=== PATIENT | male | born 1960 | race Caucasian/White ===

== ENCOUNTER 2020-06-04 10:16 | Outpatient (CLI) | payer BC, SELFPAY ==
--- NOTE | 2020-06-04 | DI.RAD_ITS ---
EXAM: XR FOOT LT COMPLETE CLINICAL HISTORY: ANKLE JOINT PAIN M25.572 TECHNIQUE: COMPARISON: CR,XR XR ANKLE LT COMPLETE from 06/04/2020 FINDINGS: Three views of the ankle and three views of the foot were obtained. There is slight varus talar tilt noted on the oblique view of the ankle, otherwise ankle mortise appears intact. There are minimal d egenerative changes at the tibiotalar joint. Otherwise alignment of the foot and ankle appear intact . No evidence of acute fracture or dislocation. IMPRESSION: RADIATION DOSE DELIVERED: Total DLP
--- NOTE | 2020-06-04 17:35 | DI.VRAD_ITS ---
PROCEDURE INFORMATION: Exam: XR Left Ankle Exam date and time: 06/04/2020 5:23 PM Age: 59 years old Clinical indication: Other: Ankle joint pain m25.572, pain x 1 mo, swelling, bruising, R/O sress fracture TECHNIQUE: Imaging protocol: XR Left ankle. Views: 3 or more views. COMPARISON: No relevant prior studies available. FINDINGS: Bones/joints: Subcentimeter relative bone lucency in the neck of the calcaneus probably represents an intraosseous lipoma. The bones are intact and there is no degenerative spurring or other deformity. No joint effusion. Soft tissues: Diffuse soft tissue swelling. IMPRESSION: Diffuse soft tissue swelling but no acute fracture or other concerning finding. Dictated and Authenticated by: Patrice Mendosa MD. Ordering:KENN Kelly MD
--- NOTE | 2020-06-04 17:39 | DI.VRAD_ITS ---
PROCEDURE INFORMATION: Exam: XR Left Foot Complete Exam date and time: 06/04/2020 4:51 PM Age: 59 years old Clinical indication: Other: Ankle joint pain m25.572 TECHNIQUE: Imaging protocol: XR Left foot. Views: 3 or more views. COMPARISON: No relevant prior studies available. FINDINGS: Bones/joints: Normal mineralization and alignment. No fracture, degenerative spur, osseous erosion or other deformity. Small medial hindfoot accessory ossicles. Soft tissues: Normal. IMPRESSION: No acute findings. Dictated and Authenticated by: Patrice Mendosa MD. Ordering:KENN Kelly MD
== END 2020-06-04 10:36 ==
PROVIDERS: PCP Physician Assistant; Visit Provider Nurse Practitioner Family
DX: M25.572 Pain in left ankle and joints of left foot (principal); M19.072 Primary osteoarthritis, left ankle and foot
CPT/HCPCS: 73610; 73630

== ENCOUNTER → 2020-06-14 10:42 | Outpatient (REF) | payer BC, SELFPAY ==
[2020-06-14 13:35] LABS: HCT 39.6 % (40.0-50.0); HGB 13.4 g/dL (13.5-17.5); MCH 30.9 pg (27.0-33.0); MCHC 33.8 % (32.0-36.0); MCV 91.5 fL (80-95); MPV 9.5 fL (8.0-11.0); Platelet Count 250 10^3/uL (130-400); RBC 4.33 10^6/uL (4.36-5.78); RDW-SD 40.2 fL; WBC 5.58 10^3/uL (4.4-10.8)
[2020-06-14 14:05] LABS: ALT 29 U/L (16-63); AST 21 U/L (15-37); Albumin 3.9 g/dL (3.4-5.0); Alkaline Phosphatase 59 U/L (46-116); Anion Gap 8.6 mmol/L (3-11); BUN 13 mg/dL (7-18); Bilirubin, Total 0.3 mg/dL (0.2-1.0); CO2 26.4 mmol/L (21.0-32.0); CREATININE 1.12 mg/dL (0.70-1.30); Calcium 8.7 mg/dL (8.5-10.1); Calculated LDL 76 mg/dL (<100); Chloride 105 mmol/L (98-107); Cholesterol 166 mg/dL (<200); Glucose 92 mg/dL (74-106); HDL Cholesterol 52 mg/dL (40-60); Potassium 4.3 mmol/L (3.5-5.1); Sodium 140 mmol/L (136-145); Total Protein 6.9 g/dL (6.4-8.2); Triglyceride 194 mg/dL (<150)
== END ==
LOC: NCHCN 10:42
PROVIDERS: PCP Physician Assistant; Visit Provider Physician Assistant
DX: I10 Essential (primary) hypertension (principal); E78.5 Hyperlipidemia, unspecified; I48.91 Unspecified atrial fibrillation; D68.59 Other primary thrombophilia
CPT/HCPCS: 80053; 80061; 85027

== ENCOUNTER 2020-09-24 02:08 | Outpatient (CLI) | payer BC, SELFPAY ==
[2020-09-24 11:26] LABS: Source Nasal/Nares
[2020-09-24 17:22] LABS: COVID-19 PCR Negative (Negative)
== END 2020-09-24 02:09 | disposition home or self-care (01) ==
LOC: LBO 02:09
PROVIDERS: Urology; PCP Physician Assistant; Visit Provider Nurse Practitioner Gerontology
DX: Z20.822 Contact with and (suspected) exposure to COVID-19 (principal)
CPT/HCPCS: 87635

== ENCOUNTER 2020-09-26 07:26 | Observation (INO) | payer BC, SELFPAY ==
[2020-09-26] VITALS (13 sets, daily range): BP systolic 95–128; BP diastolic 55–79; PULSE 44–71; RESP 11–20; TEMP 36.3–36.6; O2SAT 92–98
[2020-09-26 08:12] LABS: Abs Immature Grans 0.01 10^3/uL (0.0-0.06); Absolute Basophil Count 0.06 10^3/uL (0.0-0.2); Absolute Eosinophil Count 0.48 10^3/uL (0.0-0.7); Absolute Lymphocyte Count 1.36 10^3/uL (1.2-3.4); Absolute Monocyte Count 0.59 10^3/uL (0.1-0.8); Absolute Neutrophil Count 3.44 10^3/uL (1.2-6.7); Eosinophils % 8.1; HCT 37.9 % (40.0-50.0); HGB 13.1 g/dL (13.5-17.5); Immature Grans % 0.2; Lymphocytes % 22.9; MCH 31.2 pg (27.0-33.0); MCHC 34.6 % (32.0-36.0); MCV 90.2 fL (80-95); MPV 8.6 fL (8.0-11.0); Monocytes % 9.9; Neutrophils % 57.9; Nucleated RBC 0 %; Platelet Count 254 10^3/uL (130-400); RDW 12.3 % (11.8-14.1); RDW-SD 40.2 fL; WBC 5.94 10^3/uL (4.4-10.8)
[2020-09-26 08:19] LABS: CREATININE 1.3 mg/dL (0.70-1.30)
--- NOTE | 2020-09-26 08:19 | HPE_ITS ---
Date of service: 09/26/20 Time of Service: 08:19 Assessment and Plan Assessment and plan (1) Benign localized hyperplasia of prostate: Status: Acute Assessment and plan: For cystoscopy with TURP. We will plan to keep him in the hospital overnight for continuous bladder irrigation. We have a recommendation for 2 weeks of Lovenox in the perioperative period (made by his Clinical Project Leader). He and his partner express some concerns about potential side effects, so we will discuss again prior to his discharge. History of Present Illness Narrative: Homar is a 59-year-old male referred to urology by [facility] for BPH. Patient states that he has had this issue for several years and was initially treated with a provider in [place] before moving here. He states that his most notable symptoms are frequency, urgency straining to void and a slow stream. He does occasionally have urinary urge incontinence. He has had 2-3 bouts of urinary retention within the last year. Each of those urinary retention episodes were in relationship to stopping his tamsulosin. He notes that retention issues were addressed in [place] and [place]. He denies gross hematuria. He reports that he has had elevated PSAs in the past. There has been a history of prostate cancer with the males in his family. Another urology concerns he notes erectile dysfunction as side effects of the tamsulosin. He was unable to tolerate 0.8 mg of Tamsulosin. He reports that at 1 point he was found to have a low testosterone level and started on AndroGel. Once his PSA numbers started to rise and he had prostate issues, his provider stopped him off of the testosterone replacement. Patient notes that he is fatigued but has not had a decrease in his muscle mass. He is agreeable to TURP to allow him to get off all prostate medications. Review of Systems Narrative: No fevers or chills No vision change or dysphasia No diabetes or thyroid No shortness of breath, cough or hemoptysis No chest pain or palpitations. Hx Atrial Fibrillation s/p ablation 2019 No nausea, vomiting, hepatitis, ulcers, jaundice No seizures, strokes or peripheral neuropathy Hx hypercoagulable state. Has seen Hematology recently and cleared for surgical procedure Chronic back pain. No gout PFSH Medical History Afib Allergic asthma Anxiety disorder Arthralgia Benign localized hyperplasia of prostate Essential hypertension HLD (hyperlipidemia) Hypercoagulable state Pre-op exam Surgical History (Updated 09/26/20 @ 07:37 by Stephanie Turner RN) H/O cardiac radiofrequency ablation 2019 History of appendectomy Social History Smoking/Tobacco Use Status: Never Smoking risk assessment performed?: Yes Alcohol Intake: current Alcohol Intake frequency: 0-2 drinks per day Alcohol type: beer Drug use: Occasionally Substance use type: marijuana Do you feel safe at home: Yes Do you feel safe in your relationship?: Yes Meds Allergies and Home Medications Allergies Allergy/AdvReac Type Severity Reaction Status Date / Time No Known Allergies Allergy Unverified 09/26/20 07:38 Home Medications Medication Instructions Recorded Confirmed Type albuterol sulfate 90 mcg/actuation 2 puff INHALATION Q6H PRN 06/11/20 09/26/20 History aerosol inhaler celecoxib 100 mg capsule 100 mg PO DAILY PRN 06/11/20 09/26/20 History cetirizine 10 mg capsule 10 mg PO DAILY 06/11/20 09/26/20 History dicyclomine 20 mg tablet 20 mg PO QID PRN 06/11/20 09/26/20 History dofetilide 125 mcg capsule 125 mcg PO BID cap 06/11/20 09/26/20 History fluticasone propionate 110 1 puff INHALATION BID 06/11/20 09/26/20 History mcg/actuation HFA aerosol inhaler losartan 25 mg tablet 25 mg PO DAILY 06/11/20 09/26/20 History rosuvastatin 10 mg tablet 10 mg PO DAILY 06/11/20 09/26/20 History tamsulosin 0.4 mg capsule 0.4 mg PO QHS 06/11/20 09/26/20 History tadalafil 5 mg tablet 5 mg PO DAILY 08/07/20 09/26/20 History Exam Const General: cooperative, comfortable and no acute distress Neck Neck: supple Resp Effort & Inspection: normal respiratory effort Auscultation: clear to auscultation bilaterally Cardio Rate: regular rate Rhythm: regular rhythm GI Palpation: soft, no masses and nontender Neuro General: patient alert, patient awake and patient oriented x3 Results Labs Result diagrams: 09/26/20 08:03 09/26/20 08:03 Labs: Laboratory Results - last 24 hr 09/26/20 08:03 WBC 5.94 RBC 4.20 L Hgb 13.1 L Hct 37.9 L MCV 90.2 MCH 31.2 MCHC 34.6 RDW 12.3 Plt Count 254 MPV 8.6 Immature Gran % 0.2 Neutrophils % 57.9 Lymphocytes % 22.9 Monocytes % 9.9 Eosinophils % 8.1 Basophils % 1.0 Nucleated RBC % 0 Absolute Neutrophils 3.44 Absolute Lymphocytes 1.36 Absolute Monocytes 0.59 Absolute Eosinophils 0.48 Absolute Basophils 0.06 Last Vital Signs Temp 36.6 C 09/26/20 07:28 Pulse 60 09/26/20 07:28 Resp 20 09/26/20 07:28 BP 128/79 09/26/20 07:28 Pulse Ox 96 09/26/20 07:28 COVID-19 Screening Have you, or household traveled for leisure in last 14 days?: No Had IN PERSON contact w/suspected or confirmed C-19 person: No
[2020-09-26] MEDS: Lactated Ringers 1,000 ML 80 ML IV (08:28)
[2020-09-26] MEDS: ceFAZolin 2 GM/50 ML BAG IVPB (09:01)
[2020-09-26] MEDS: Lidocaine 2% Jelly 6 ML SYR (09:21)
--- NOTE | 2020-09-26 10:45 | PROST_PTH ---
PATIENT: Homar Kirby LOC: U#:[id number] AGE/SX: 59/M ROOM: 229 RE09/26/[address]: Silviano Echevarria MD : [id number] BED: A DIS: 09/27/2020 SPEC #: [id number] RECD: 09/26/20 12:55 STATUS: KERWIN REQ #: [id number] ABDIEL: 09/26/20 10:[address]: Silviano Echevarria DEPT: Surgical Specimen RECD BY: Yasmin Holbrook ENTERED: 09/26/20 12:56 SP TYPE: PROST OTHR DR: Nikolay Campa Tissues: 1 - PROSTATE CURRETTINGS Procedures: GROSS AND MICRO LEVEL 4 Comments: [id number]
--- NOTE | 2020-09-26 10:55 | W.PM.OP ---
Date of service: 09/26/20 Time of Service: 10:55 Operative Note Operative Note DATE OF PROCEDURE: 09/26/20 PRE-OP DIAGNOSIS: BPH with lower urinary tract symptoms POST-OP DIAGNOSIS: same PROCEDURE: cystoscopy, TURP with bipolar cautery ANESTHESIA TYPE: General LMA/ETT Refer to Anesthesia Record ESTIMATED BLOOD LOSS: 250 PATHOLOGY: other (prostate chips) COMPLICATIONS: None Patient was transported to: PACU Patient's condition: stable Implants: 22 [place] hematuria park catheter with 30 cc in balloon Indications: Is a 59-year-old gentleman with a history of lower urinary tract symptoms. He has tried and failed medical management with alpha blockers. He has had several episodes of urinary retention. He presents for transurethral resection of his prostate. Findings: Diffusely enlarged prostate with no significant median lobe Procedure Description: The patient was brought to the operating room on 09/26/2020. He was given preoperative IV antibiotics. After successful induction of general anesthesia, he was placed in the dorsal lithotomy position. His genitalia was prepped and draped. 2% Xylocaine jelly was instilled into the urethra. A 24 [place] resectoscope sheath was passed through the urethra into the bladder. We used a visual obturator and a 30 degree lens to inspect the urethral mucosa. No papillary lesions were seen along the length of the urethra. No strictures were found in the pendulous, bulbous or membranous urethra's. The prostatic urethra showed lateral lobe enlargement but no significant median lobe was identified. The bladder neck was entered and the bladder mucosa was inspected. Both ureteral orifice ease appeared normal. No blood was seen coming from either side. The remainder the bladder was slightly trabeculated with no papillary or nodular lesions identified. We then removed the visual obturator and utilized an [employer] resectoscope working element to perform transurethral resection of the prostate. We resected from the bladder neck out to the verumontanum. The depth of the resection was down to the prostatic capsule. All resected tissue was evacuated and sent to pathology for permanent section. We then switched to the plasma button and vaporized the remainder of the prostatic tissue down to the capsule. Any arterial bleeding points are identified were cauterized. At the completion of the procedure no arterial bleeding was seen. The bladder was filled with irrigant. The resectoscope was removed. A 22 [place] hematuria catheter was then passed through the urethra into the bladder. The catheter balloon was inflated with 30 cc of sterile water. Continuous bladder irrigation was then begun. Traction was placed on the catheter until the irrigant became clear. Belladonna and opium suppository was then inserted into the patient's rectum to help control bladder spasms. The patient tolerated this procedure well with no complications. He was taken to the recovery room in stable condition.
[2020-09-26] MEDS: ceFAZolin 1 GM/50 ML BAG IVPB ×2 (16:53→21:47)
[2020-09-26] MEDS: Lactated Ringers 1,000 ML 125 ML IV (16:53)
[2020-09-26] MEDS: Docusate Sodium 100 MG CAP PO (19:55)
[2020-09-26] MEDS: Zolpidem 5 MG TAB PO (22:44)
[2020-09-27] MEDS: Lactated Ringers 1,000 ML 125 ML IV (01:34)
[2020-09-27 01:37] VITALS: BP 125/57; PULSE 73; RESP 18; TEMP 36.9; O2SAT 95
[2020-09-27] MEDS: ceFAZolin 1 GM/50 ML BAG IVPB (05:33)
[2020-09-27 07:23] VITALS: BP 107/57; PULSE 66; RESP 18; TEMP 36; O2SAT 95
--- NOTE | 2020-09-27 07:25 | DSE_ITS ---
Date of service: 09/27/20 Time of Service: 07:25 DS: Diagnosis Discharge Diagnosis (1) Benign localized hyperplasia of prostate: Status: Acute Discharge Plan Disposition Patient Disposition: HOME Condition: Stable Discharge Details Reason For Visit: BPH WITH LOWER URINARY TRACT SYMPTOMS Admit Date/Time: 09/26/20 07:26 Admit Provider: Silviano Echevarria Attending Provider: Silviano Echevarria Primary Care Provider: Nikolay Campa Hospital Course Hospital Course: The patient was a admitted and taken to the operating room on 09/26/2020. He un derwent cystoscopy, transurethral resection of the prostate and vaporization of the prostate using bipolar cautery. Lower extremity sequential compression devices were applied preoperatively and were maintained perioperatively. His surgery was uneventful. In the postoperative time, he was maintained with continuous bladder irrigation. By postoperative day #1, his irrigant remained clear. His vital signs were stable. The irrigant was discontinued and he is being discharged to home with a catheter in place. The patient does have a history of a hypercoagulable state. Based on the recommendations of his maxillofacial pathology, we checked a CBC and creatinine preoperatively. Both results were stable for the patient. Prior to discharge, we reviewed the recommendations made by the patient's hemat ology provider. The patient had preop blood work, but his lupus anticoagulant level will not be available for 2 weeks. To be on the safe side, hematology is recommending that the patient use Lovenox 40 mg/day for 2 weeks. 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 He is not sure that he will actually follow through with the Lovenox injections. He understands the rationale for the use of the Lovenox, but he may use a daily aspirin instead. We reviewed the signs and symptoms of both DVTs and PE. We stressed the importance of ambulation to help prevent DVTs. Home Meds and New Rx's Prescriptions: New enoxaparin [Lovenox] 40 mg/0.4 mL syringe 40 mg subcut DAILY 14 Days Qty: 5.6 RF: 0 Continued tadalafil 5 mg tablet 5 mg PO DAILY RF: 0 dicyclomine 20 mg tablet 20 mg PO QID PRNRF: 0 albuterol sulfate [ProAir HFA] 90 mcg/actuation HFA aerosol inhaler 2 puff inhalation Q6H PRNRF: 0 celecoxib [Celebrex] 100 mg capsule 100 mg PO DAILY PRNRF: 0 Flovent HFA 110 mcg/actuation HFA aerosol inhaler 1 puff inhalation BID RF: 0 losartan 25 mg tablet 25 mg PO DAILY RF: 0 dofetilide [Tikosyn] 125 mcg capsule 125 mcg PO BID RF: 0 Zyrtec 10 mg capsule 10 mg PO DAILY RF: 0 tamsulosin 0.4 mg capsule 0.4 mg PO QHS RF: 0 rosuvastatin 10 mg tablet 10 mg PO DAILY RF: 0 Discharge Instructions Additional Instructions: Follow-up early next week for catheter removal No straining or lifting over 20 pounds Okay to shower Activity:: No lifting over 20 pounds Equipment/Supplies:: Knox to leg bag Diet:: As Tolerated Discharge Orders Discharge Orders: Discharge Order (Routine); Ordered 09/27/20 Ordered By: Silviano Echevarria DS: Summary Time Spent with Patient providing and/or coordinating discharge services: Less than 30 minutes Status at Discharge Functional status at discharge: independent ambulation Overall status at discharge: patient is back to baseline Mental Status: mental status grossly normal Speech and Movement: speech and movement normal Mood: congruent mood Affect: normal affect Exam Narrative Exam Narrative: At the time of discharge, he looks well. His vital signs are documented elsewhere in this chart He does not appear septic or toxic Lungs are clear Cardiac exam shows a regular rate and rhythm His abdomen is soft with no mass His Knox catheter is draining clear urine His calves are nontender He is awake and alert Psych Mental Status: mental status grossly normal Speech and Movement: speech and movement normal Mood: congruent mood Affect: normal affect DS: Data Vitals/I&O Vitals and I&O: Vital Signs Temperature 36.0 C L 09/27/20 07:23 Temperature Source Tympanic 09/27/20 07:23 Pulse 66 09/27/20 07:23 Pulse Rhythm Regular 09/27/20 04:54 Respiratory Rate 18 09/27/20 07:23 Respiratory Effort Non-Labored 09/27/20 04:54 Respiratory Depth Normal 09/27/20 04:54 Respiratory Pattern Normal 09/27/20 04:54 Blood Pressure 107/57 L 09/27/20 07:23 Pulse Oximetry 95 09/27/20 07:23 Respiratory End-tidal CO2 41 09/26/20 11:51 Oxygen Delivery Method Room Air 09/27/20 07:23 Oxygen Flow Rate 0 09/27/20 07:23 Pain Level 0 09/27/20 07:23 Comment 09/26/20 12:45 Intake & Output 09/26/20 09/26/20 09/27/20 11:59 23:59 11:59 Intake Total 550 / 1140.667 590.667 / 1072.613 3486 / 2000 Balance 550 / 1140.667 590.667 / 3661.881 3521 / 2000 Weight 98.1 kg Intake: IV 550 / 1140.667 590.667 / 4671.435 2849 / 2000 Other: Urine Color [place] Yellow Urine Appearance Clear Comment Secured to leg with safety strap had belladonna suppository in PACU- slow flow 3 way- Emesis Description None None Data Completed and Pending Labs on day of discharge: Labs from last 24 hours 09/27/20 09/27/20 09/26/20 05:35 05:35 08:03 WBC Pending 5.94 RBC Pending 4.20 L Hgb Pending 13.1 L Hct Pending 37.9 L MCV Pending 90.2 MCH Pending 31.2 MCHC Pending 34.6 RDW Pending 12.3 Plt Count Pending 254 MPV Pending 8.6 Immature Gran % Pending 0.2 Neutrophils % Pending 57.9 Lymphocytes % Pending 22.9 Monocytes % Pending 9.9 Eosinophils % Pending 8.1 Basophils % Pending 1.0 Nucleated RBC % 0 Absolute Neutrophils Pending 3.44 Absolute Lymphocytes Pending 1.36 Absolute Monocytes Pending 0.59 Absolute Eosinophils Pending 0.48 Absolute Basophils Pending 0.06 Sodium Pending Potassium Pending Chloride Pending Carbon Dioxide Pending Anion Gap Pending BUN Pending Creatinine Pending Estimated GFR/1.73 m2 Pending Glucose Pending Calcium Pending 09/26/20 08:03 WBC RBC Hgb Hct MCV MCH MCHC RDW Plt Count MPV Immature Gran % Neutrophils % Lymphocytes % Monocytes % Eosinophils % Basophils % Nucleated RBC % Absolute Neutrophils Absolute Lymphocytes Absolute Monocytes Absolute Eosinophils Absolute Basophils Sodium Potassium Chloride Carbon Dioxide Anion Gap BUN Creatinine 1.3 Estimated GFR/1.73 m2 56.90 Glucose Calcium [facility] Medical History Afib Allergic asthma Anxiety disorder Arthralgia Benign localized hyperplasia of prostate Essential hypertension HLD (hyperlipidemia) Hypercoagulable state Pre-op exam Surgical History H/O cardiac radiofrequency ablation 2020 History of appendectomy Social History Smoking/Tobacco Use Status: Never Smoking risk assessment performed?: Yes Alcohol Intake: current Alcohol Intake frequency: 0-2 drinks per day Alcohol type: beer Drug use: Occasionally Substance use type: marijuana Do you feel safe at home: Yes Do you feel safe in your relationship?: Yes
[2020-09-27 07:29] LABS: Abs Immature Grans 0.04 10^3/uL (0.0-0.06); Absolute Basophil Count 0.02 10^3/uL (0.0-0.2); Absolute Eosinophil Count 0.01 10^3/uL (0.0-0.7); Absolute Lymphocyte Count 1.44 10^3/uL (1.2-3.4); Absolute Monocyte Count 1.06 10^3/uL (0.1-0.8); Absolute Neutrophil Count 8.86 10^3/uL (1.2-6.7); Basophils % 0.2; Eosinophils % 0.1; HCT 29.1 % (40.0-50.0); HGB 9.9 g/dL (13.5-17.5); Immature Grans % 0.3; Lymphocytes % 12.6; MCH 30.8 pg (27.0-33.0); MCV 90.7 fL (80-95); MPV 9.3 fL (8.0-11.0); Monocytes % 9.3; Neutrophils % 77.5; Nucleated RBC 0 %; Platelet Count 259 10^3/uL (130-400); RBC 3.21 10^6/uL (4.36-5.78); RDW 12.3 % (11.8-14.1); RDW-SD 40.6 fL; WBC 11.43 10^3/uL (4.4-10.8)
--- NOTE | 2020-09-27 07:40 | PGE_ITS ---
Date of Service Date of service: 09/27/20 Time of Service: 07:40 Assessment and Plan Assessment and plan (1) Benign localized hyperplasia of prostate: Status: Acute Assessment and plan: He is recovering nicely from his procedure. We will discontinue his IV fluids and continuous bladder irrigation. We will make sure he ambulates to ensure there is no orthostatic hypotension He should be able to go home later today with his catheter to a leg bag. We will plan on removing his catheter early next week. We will then have a follow- up appointment in about 2 weeks for a pathology discussion. Subjective Subjective Interval history since last seen: He feels, to bowl with no significant catheter discomfort or pain. He is tolerating p.o. intake. He has no lightheadedness or dizziness. He has no calf pain or shortness of breath. Exam Narrative Exam Narrative: He does not appear septic or toxic His vital signs are documented elsewhere The urine in his catheter is clear He is awake and alert His is around 10. His serum creatinine is stable at 1.2 Objective Last Vital Signs Temp 36.0 C L 09/27/20 07:23 Pulse 66 09/27/20 07:23 Resp 18 09/27/20 07:23 BP 107/57 L 09/27/20 07:23 Pulse Ox 95 09/27/20 07:23 Laboratory Results - last 24 hr 09/26/20 09/26/20 09/27/20 08:03 08:03 06:17 WBC 5.94 11.43 H D RBC 4.20 L 3.21 L Hgb 13.1 L 9.9 L D Hct 37.9 L 29.1 L D MCV 90.2 90.7 MCH 31.2 30.8 MCHC 34.6 34.0 RDW 12.3 12.3 Plt Count 254 259 MPV 8.6 9.3 Immature Gran % 0.2 0.3 Neutrophils % 57.9 77.5 Lymphocytes % 22.9 12.6 Monocytes % 9.9 9.3 Eosinophils % 8.1 0.1 Basophils % 1.0 0.2 Nucleated RBC % 0 0 Absolute Neutrophils 3.44 8.86 H Absolute Lymphocytes 1.36 1.44 Absolute Monocytes 0.59 1.06 H Absolute Eosinophils 0.48 0.01 Absolute Basophils 0.06 0.02 Creatinine 1.3 Estimated GFR/1.73 m2 56.90
[2020-09-27 07:56] LABS: Anion Gap 3.7 mmol/L (3-11); BUN 23 mg/dL (7-18); CO2 26.3 mmol/L (21.0-32.0); CREATININE 1.2 mg/dL (0.70-1.30); Calcium 8.2 mg/dL (8.5-10.1); Chloride 107 mmol/L (98-107); Glucose 111 mg/dL (74-106); Sodium 137 mmol/L (136-145)
[2020-09-27] MEDS: Docusate Sodium 100 MG CAP PO (08:21)
[2020-09-27] MEDS: Rosuvastatin 10 MG TAB PO (08:22)
[2020-09-27] MEDS: Losartan 25 MG TAB PO (08:22)
[2020-09-27] MEDS: Cetirizine 10 MG TAB PO (08:22)
[2020-09-27] MEDS: Normal Saline Flush 10 ML SYR IV (08:22)
--- NOTE | 2020-09-27 13:37 | CHAPLAIN ---
Homar was up in his chair, working on an iPad, and said he's being discharged later today. He's waiting for his fiance to pick him up. He lives in [place], [place].
[2020-09-27] MEDS: Acetaminophen 325 MG TAB 650 MG PO (14:06)
--- NOTE | 2020-09-27 16:56 | CMPROGNOTE_ITS ---
- If Service Date Differs Date of service: 09/27/20 Time of Service: 16:56 Care Management Progress Note S/O: Homar was sitting up in his chair when CM met with him. He has already been discharged, but is waiting for his fiance to drive him home this afternoon. CM was given forms for him to return to work, which CM brought to Dr. Echevarria, and will be faxed from his office. Urology will mail him the originals once they have been faxed to his employer. 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 He is independent at baseline, and will not require any services or equipment upon discharge. He will follow up with Urology and his discharge plan of care. CM will continue to follow. A: Homar is a 59 year old male admitted to [facility] on 09/26/20 with BPH with lower urinary tract symptoms. P: Homar will return home today with no services. He will be driven home via private vehicle by his fiance. He will follow up with Urology, his PCP and his discharge plan of care. He had no questions or concerns regarding his discharge.
== END 2020-09-27 18:01 | disposition home or self-care (01) | DRG 714 ==
LOC: MS 09-27 13:50 → PDS 12-19 15:44 → MS 12-19 15:44
PROVIDERS: Admitting Provider Urology; PCP Physician Assistant; Visit Provider Urology
PROC: 0VT08ZZ Resection of Prostate, Via Natural or Artificial Opening Endoscopic (ICD-10-PCS; CPT 52601; principal; 2020-09-26 08:45)
DX: N40.1 Benign prostatic hyperplasia with lower urinary tract symptoms (principal); R35.0 Frequency of micturition; R39.15 Urgency of urination; I48.91 Unspecified atrial fibrillation; F41.9 Anxiety disorder, unspecified; I10 Essential (primary) hypertension; E78.5 Hyperlipidemia, unspecified; J45.909 Unspecified asthma, uncomplicated
CPT/HCPCS: 52601; 36415; 80048; 88305; NC; 82565; 85025; J0690

== ENCOUNTER 2020-09-27 21:50 | Emergency (ER) | payer BC, SELFPAY ==
[2020-09-27 21:53] VITALS: BP 134/76; PULSE 75; RESP 18; TEMP 36.8; O2SAT 98
--- NOTE | 2020-09-27 22:27 | ED.GENADUL_ITS ---
Discharge Plan Disposition Patient Disposition: HOME Condition: Stable Discharge Details Clinical Impression: Bladder spasm, Post-op pain Primary Care Provider: Nikolay Campa ED Provider: Sunny Blackmon Home Meds and New Rx's Prescriptions: New oxybutynin chloride 10 mg tablet extended release 24hr 10 mg PO DAILY Qty: 10 RF: 0 Continued dicyclomine 20 mg tablet 20 mg PO QID PRNRF: 0 albuterol sulfate [ProAir HFA] 90 mcg/actuation HFA aerosol inhaler 2 puff inhalation Q6H PRNRF: 0 celecoxib [Celebrex] 100 mg capsule 100 mg PO DAILY PRNRF: 0 Flovent HFA 110 mcg/actuation HFA aerosol inhaler 1 puff inhalation BID RF: 0 losartan 25 mg tablet 25 mg PO DAILY RF: 0 dofetilide [Tikosyn] 125 mcg capsule 125 mcg PO BID RF: 0 Zyrtec 10 mg capsule 10 mg PO DAILY RF: 0 rosuvastatin 10 mg tablet 10 mg PO DAILY RF: 0 Discontinued tadalafil 5 mg tablet 5 mg PO DAILY RF: 0 enoxaparin [Lovenox] 40 mg/0.4 mL syringe 40 mg subcut DAILY 14 Days Qty: 5.6 RF: 0 Discharge Instructions Additional Instructions: Please follow-up with urology next week as scheduled. Please take ibuprofen over the counter. Take 600mg by mouth every 6 hours as needed for pain. Take antispasmodic agent as prescribed. Your next dose is tomorrow evening. Return to the emergency department immediately for any worsening or new concerns including inability to urinate or increasing pain or fever. Referrals: Silviano Echevarria MD [ [facility] STAFF PHYSICIAN] - Medical Decision Making 2229??59-year-old male presents 1 day status post TURP with significant pain suprapubic and and penis with urine leaking around catheter after attempted bowel movement. Bladder scan performed and patient had 130 mL of urine in bladder. I called and spoke with patient's urologist, Dr. Echevarria, discussed ED presentation and course, he recommends flushing catheter to hopefully remove clot. He also recommends treating with antispasmodic oxybutynin. Nursing to flush catheter. --Urine now draining. Will continue antispasmotic and have patient followup with Dr. Echevarria. Disposition decision was made weighing the risks and benefits of hospitalization versus outpatient treatment, the risk for further decompensation, and the patient's wishes. The patient was stable and requested discharge. Prior to discharge, my usual and customary return precautions were reviewed with the patient - this included follow-up instructions and reason to return to the emergency department if condition worsens, does not improve as expected, or other new concerns arise. Medical Records Medical records reviewed: Yes I reviewed the patient's medical records. HPI General Mode of arrival: ambulatory . Date/Time Provider Initiated Documentation: 09/27/20 21:51 . Limitations to Documentation: no limitations . Information obtained by: patient . HPI Narrative: 59-year-old male presents 1 day status post TURP for BPH, discharged today and went home and attempted to have a bowel movement and had sudden onset of severe pain in suprapubic area. This occurred about an hour prior to arrival. He subsequently notes that he had some urine leaking out around the Knox catheter and decreased drainage in his catheter. He continues to have some suprapubic discomfort that is moderate rated 5/10. He did not have a bowel movement Denies associated fever. Related Data Home Medications Medication Instructions Recorded Confirmed albuterol sulfate 90 mcg/actuation 2 puff INHALATION Q6H PRN 06/11/20 09/27/20 aerosol inhaler celecoxib 100 mg capsule 100 mg PO DAILY PRN 06/11/20 09/27/20 cetirizine 10 mg capsule 10 mg PO DAILY 06/11/20 09/27/20 dicyclomine 20 mg tablet 20 mg PO QID PRN 06/11/20 09/27/20 dofetilide 125 mcg capsule 125 mcg PO BID cap 06/11/20 09/27/20 fluticasone propionate 110 1 puff INHALATION BID 06/11/20 09/27/20 mcg/actuation HFA aerosol inhaler losartan 25 mg tablet 25 mg PO DAILY 06/11/20 09/27/20 rosuvastatin 10 mg tablet 10 mg PO DAILY 06/11/20 09/27/20 oxybutynin chloride 10 mg PO DAILY #10 tab 09/27/20 Previous Rx's Medication Instructions Recorded oxybutynin chloride 10 mg PO DAILY #10 tab 09/27/20 Allergies Allergy/AdvReac Type Severity Reaction Status Date / Time No Known Allergies Allergy Unverified 09/27/20 21:55 General Stated Complaint: Urinary TERA: 3 Review of Systems Constitutional Constitutional: Denies fever(s) Gastrointestinal Gastrointestinal: Reports as per HPI Genitourinary Genitourinary: Reports as per HPI and Reports hematuria PFSH Medical History Afib Allergic asthma Anxiety disorder Arthralgia Benign localized hyperplasia of prostate Essential hypertension HLD (hyperlipidemia) Hypercoagulable state Pre-op exam Surgical History H/O cardiac radiofrequency ablation 2020 History of appendectomy Social History Smoking/Tobacco Use Status: Never Smoking risk assessment performed?: Yes Alcohol Intake: current Alcohol Intake frequency: 0-2 drinks per day Alcohol type: beer Drug use: Occasionally Substance use type: marijuana Do you feel safe at home: Yes Do you feel safe in your relationship?: Yes Exam Const General: cooperative and no acute distress Eyes Conjunctivae: normal conjunctivae Sclera: normal sclerae Cardio Rate: regular rate GI Palpation: soft, not firm, no guarding, no masses, not rigid and tender s uprapubicly Penis: normal penis Other: Knox catheter intact Skin General skin exam: no rashes or lesions noted Neuro General: patient alert, patient awake, patient oriented x3 and tone normal Course Vital Signs Vital signs: Vital Signs Temperature 36.8 C 09/27/20 21:53 Pulse 75 09/27/20 21:53 Respiratory Rate 18 09/27/20 21:53 Blood Pressure 134/76 09/27/20 21:53 Pulse Oximetry 98 09/27/20 21:53 Temperature 36.8 C 09/27/20 21:53 Pulse 75 09/27/20 21:53 Respiratory Rate 18 09/27/20 21:53 Respiratory Effort Non-Labored 09/27/20 21:58 Blood Pressure 134/76 09/27/20 21:53 Pulse Oximetry 98 09/27/20 21:53 Pain Level 5 09/27/20 21:53
[2020-09-27] MEDS: Oxybutynin-CR 5 MG TABCR 10 MG PO (22:58)
== END 2020-09-27 23:20 | disposition home or self-care (01) ==
PROVIDERS: Emergency Provider Student in an Organized Health Care Education/Training Program; PCP Physician Assistant
DX: N32.89 Other specified disorders of bladder (principal); R10.30 Lower abdominal pain, unspecified; G89.18 Other acute postprocedural pain; T83.091A Other mechanical complication of indwelling urethral catheter, initial encounter
CPT/HCPCS: 99284

== ENCOUNTER 2020-10-10 16:24 | Outpatient (REF) | payer BC, SELFPAY | END 2020-10-10 16:25 | disposition home or self-care (01) | LOC: LBN 16:24 | PROVIDERS: PCP Physician Assistant; Visit Provider Urology | DX: R31.9 Hematuria, unspecified (principal); N40.1 Benign prostatic hyperplasia with lower urinary tract symptoms | CPT/HCPCS: 87086 ==

== ENCOUNTER 2020-11-05 14:36 | Outpatient (REF) | payer BC, SELFPAY | END 2020-11-05 14:37 | disposition home or self-care (01) | LOC: LBN 14:36 | PROVIDERS: PCP Physician Assistant; Visit Provider Urology | DX: R30.0 Dysuria (principal); N32.89 Other specified disorders of bladder | CPT/HCPCS: 87086 ==

== ENCOUNTER 2021-01-07 02:10 | Outpatient (CLI) | payer BC, SELFPAY ==
--- NOTE | 2021-01-07 | DI.RAD_ITS ---
Exam(s) XR LUMBAR SPINE COMPLETE EXAM: XR LUMBAR SPINE COMPLETE CLINICAL HISTORY: LOW BACK PAIN, M54.5,PROGRESSIVE,RT SIDED RADICULOPATHY TECHNIQUE: COMPARISON: No exams were available for comparison FINDINGS: Five views were obtained. There is narrowing of the intervertebral disc spaces at L4-5 and L5-S1. T here are mild hypertrophic endplate degenerative changes throughout the lumbar region. Mild facet hy pertrophic changes also noted throughout the lumbar region. No evidence of spondylolysis or spondylo listhesis. SI joints appear well maintained. No compression fracture seen. IMPRESSION: Degenerative changes of the lumbar spine with loss of disc height at L4-5 and L5-S1. RADIATION DOSE DELIVERED: Total DLP
== END 2021-01-07 02:30 ==
PROVIDERS: PCP Physician Assistant; Visit Provider Physician Assistant
DX: M47.26 Other spondylosis with radiculopathy, lumbar region (principal)
CPT/HCPCS: 72110

== ENCOUNTER 2021-02-12 02:05 | Outpatient (CLI) | payer BC, SELFPAY ==
--- NOTE | 2021-02-12 11:20 | DI.MRI_ITS ---
Exam(s) MR LUMBAR SPINE WO EXAM: MR LUMBAR SPINE WO CLINICAL HISTORY: PROGRESSIVE LOW BACK PAIN,M54.5,RT SIDED RADICULOPATHY. TECHNIQUE: Multiplanar multisequence MRI of the Lumbar spine was performed. COMPARISON: CR XR LUMBAR SPINE COMPLETE from 01/07/2021 FINDINGS: Plain films performed 01/07/2021 were reviewed. Conus medullaris is at normal level. There is no evidence of conus mass nor subjacent clumping of in trathecal nerve roots to suggest arachnoiditis. The distal thecal sac appears unremarkable.There is no evidence of Tarlov intrasacral cysts nor other significant findings within the sacral canal Bones:There are no fractures nor ominous osseous lesions in the lumbar vertebral bodies and visualize d sacrum. With respect to the individual levels... T12-L1: Unremarkable L1-2: Normal disc height and signal. No disc herniation nor central canal stenosis.No foraminal steno sis L2-3: There is mild-moderate disc space narrowing at this level. There is mild symmetrical annular b ulging without a dominant disc herniation at this level.No significant central canal stenosis.. No f oraminal stenosis.No facet arthropathy. L3-4: Preserved disc height and signal. Mild symmetrical annular bulging but without a significant d isc herniation.Central canal dimensions are lower normal.There is no significant foraminal stenosis.. Mild degenerative changes in the right facet joint noted. Left facet joint unremarkable. L4-5: This level exhibits moderate disc space narrowing, more so on the right side. There is a centr al-posterolateral right disc herniation at this level superimposed upon annular bulging. This disc p rotrusion extends posteriorly 5 millimeters and is approximately 1.7 cm wide. This indents the anter ior and right thecal sac at this level. The disc herniation does not extend into the exiting right n eural foramen and there is no prominent foraminal stenosis on either side at this level. Incidentall y noted is a small focus of bright signal in the left side of the annulus at this level at the level of the exiting left neural foramen. However, there does not appear to be a prominent disc herniation at this location at this time. Mild-moderate degenerative changes are noted in the left facet joint at this level. Mild degenerative changes in the right facet joint. L5-S1: This level exhibits more advanced chronic-type disc space narrowing. There is annular bulging with a superimposed central subligamentous disc protrusion at this level. This disc protrusion exte nds posteriorly 2 millimeters and is approximately 1.2 cm wide. This slightly indents the anterior a spect of thecal sac but does not extend into the exiting neural foramina. Central canal dimensions a re lower normal at this level. There is no significant foraminal stenosis despite the disc height lo ss. This is related to the fact that there are only minimal degenerative facet joint changes. Soft tissues: paraspinal soft tissues appear unremarkable. IMPRESSION: 1. Most significant findings at L4-5 level where there is a central-right paracentral disc herniation as described above which indents the thecal sac, extending posteriorly up to 5 millimeters. However , this does not extend into the exiting right neural foramen. 2. Smaller central subligamentous disc protrusion is evident at L5-S1 level. No prominent central ca nal stenosis at this level and no foraminal stenosis. 3. There is only minimal facet arthropathy in the lumbar spine. No listhesis. DATA REPOSITORY:
== END 2021-02-12 02:25 ==
PROVIDERS: PCP Physician Assistant; Visit Provider Physician Assistant
DX: M54.5 Low back pain (principal); M51.26 Other intervertebral disc displacement, lumbar region; M51.27 Other intervertebral disc displacement, lumbosacral region; M12.88 Other specific arthropathies, not elsewhere classified, other specified site
CPT/HCPCS: 72148

== ENCOUNTER 2021-04-09 21:12 | Outpatient (REF) | payer BC, SELFPAY ==
[2021-04-09 20:12] LABS: HCT 40.6 % (40.0-50.0); HGB 13.6 g/dL (13.5-17.5); MCH 30.1 pg (27.0-33.0); MCHC 33.5 % (32.0-36.0); MCV 89.8 fL (80-95); MPV 9.3 fL (8.0-11.0); Platelet Count 302 10^3/uL (130-400); RBC 4.52 10^6/uL (4.36-5.78); RDW 12.7 % (11.8-14.1); RDW-SD 41.6 fL; WBC 6.74 10^3/uL (4.4-10.8)
[2021-04-09 20:15] LABS: Anion Gap 8.7 mmol/L (3-11); BUN 24 mg/dL (7-18); CO2 28.3 mmol/L (21.0-32.0); Calcium 9.1 mg/dL (8.5-10.1); Chloride 106 mmol/L (98-107); Glucose 95 mg/dL (74-106); Potassium 3.7 mmol/L (3.5-5.1); Sodium 143 mmol/L (136-145)
[2021-04-09 20:17] LABS: Bilirubin Negative (Negative); Blood Negative (Negative); Clarity Clear (Clear); Glucose Negative (Negative); Ketones Negative (Negative); Leukocyte Esterase Negative (Negative); Nitrite Negative (Negative); Specific Gravity >= 1.030 (1.005-1.025); Urobilinogen 0.2 EU/dL (Up TO 0.2)
== END 2021-04-09 21:13 | disposition home or self-care (01) ==
LOC: NCHCN 21:12
PROVIDERS: Urology; PCP Physician Assistant; Visit Provider Family Medicine
DX: I10 Essential (primary) hypertension (principal); D50.0 Iron deficiency anemia secondary to blood loss (chronic); Z01.818 Encounter for other preprocedural examination; R33.9 Retention of urine, unspecified
CPT/HCPCS: 80048; 85027; 81003

== ENCOUNTER 2021-04-18 03:20 | Outpatient (CLI) | payer BC, SELFPAY ==
[2021-04-18 14:02] LABS: Source Nasal/Nares
[2021-04-18 17:11] LABS: COVID-19 PCR Negative (Negative)
== END 2021-04-18 03:21 | disposition home or self-care (01) ==
LOC: LBO 03:21
PROVIDERS: PCP Physician Assistant; Visit Provider Urology
DX: Z20.822 Contact with and (suspected) exposure to COVID-19 (principal); Z01.818 Encounter for other preprocedural examination
CPT/HCPCS: 87635

== ENCOUNTER 2021-06-27 00:38 | Outpatient (CLI) | payer BC, SELFPAY ==
--- NOTE | 2021-06-27 | DI.MRI_ITS ---
Exam(s) MR LUMBAR SPINE WO/W EXAM: MR LUMBAR SPINE WO/W CLINICAL HISTORY: BACK PAIN, LESION LUMBOSACRAL NERVE ROOT G54.4 TECHNIQUE: Multiplanar multisequence MRI of the Lumbar Spine was performed. CONTRAST MATERIAL: IV Contrast: 20 mL of Dotarem contrast administered. COMPARISON: CR XR LUMBAR SPINE COMPLETE from 01/07/2021 MR MR LUMBAR SPINE WO from 02/12/2021 FINDINGS: There is a 3 x 4 millimeter nodule which appears to arise from left-sided nerve root at the T12-L1 le lauren. It shows mild homogeneous enhancement. An additional 8 millimeter mildly enhancing nodule is s een which is slightly eccentric toward the right at the L3 level which also appears to arise from ner ve roots and causes some nerve root displacement. No additional nerve root nodules are seen. The co nus medullaris appears normal. Degenerative disc changes are present, greatest at L4-5 and L5-S1, as mentioned on the previous report. IMPRESSION: Two small nodular foci with mild post gadolinium enhancement are noted which appear to arise from ne rve roots and could represent small schwannomas. DATA REPOSITORY:
[2021-06-27] MEDS: Normal Saline Flush 10 ML SYR IVP (14:30)
[2021-06-27] MEDS: Gadoterate meglumine 20 ML VIAL IVP (14:31)
== END 2021-06-27 00:58 ==
PROVIDERS: PCP Physician Assistant; Visit Provider Physician Assistant Surgical
DX: M54.59 Other low back pain (principal); G54.4 Lumbosacral root disorders, not elsewhere classified; M51.37 Other intervertebral disc degeneration, lumbosacral region
CPT/HCPCS: 72158

== ENCOUNTER 2022-01-15 15:41 | Outpatient (REF) | payer SELFPAY ==
[2022-01-15 15:32] LABS: Abs Immature Grans 0.01 10^3/uL (0.0-0.06); Absolute Basophil Count 0.06 10^3/uL (0.0-0.2); Absolute Eosinophil Count 0.33 10^3/uL (0.0-0.7); Absolute Monocyte Count 0.46 10^3/uL (0.1-0.8); Absolute Neutrophil Count 2.87 10^3/uL (1.2-6.7); Basophils % 1.1; Eosinophils % 6.3; HCT 39.8 % (40.0-50.0); HGB 14.1 g/dL (13.5-17.5); Immature Grans % 0.2; Lymphocytes % 28.7; MCH 31.8 pg (27.0-33.0); MCHC 35.4 % (32.0-36.0); MCV 90 fL (80-95); MPV 9.6 fL (8.0-11.0); Monocytes % 8.8; Neutrophils % 54.9; Platelet Count 265 10^3/uL (130-400); RBC 4.44 10^6/uL (4.36-5.78); RDW 11.9 % (11.8-14.1); RDW-SD 38.7 fL; WBC 5.23 10^3/uL (4.4-10.8)
[2022-01-15 15:38] LABS: Anion Gap 7.4 mmol/L (3-11); BUN 17 mg/dL (7-18); CO2 28.6 mmol/L (21.0-32.0); Calcium 8.8 mg/dL (8.5-10.1); Calculated LDL 117 mg/dL (<100); Chloride 105 mmol/L (98-107); Cholesterol 190 mg/dL (<200); Glucose 101 mg/dL (74-106); HDL Cholesterol 58 mg/dL (40-60); Potassium 4.3 mmol/L (3.5-5.1); Sodium 141 mmol/L (136-145); Triglyceride 78 mg/dL (<150)
== END 2022-01-15 15:42 | disposition home or self-care (01) ==
LOC: NCHCN 15:41
PROVIDERS: PCP Physician Assistant; Visit Provider Physician Assistant
DX: D50.0 Iron deficiency anemia secondary to blood loss (chronic) (principal); E78.5 Hyperlipidemia, unspecified
CPT/HCPCS: 80048; 80061; 85025

== ENCOUNTER 2023-05-20 13:44 | Outpatient (REF) | payer OTHER, SELFPAY ==
--- OUTSIDE RECORDS SUMMARY | 2023-05-20 13:48 | XMS_ITS | Continuity of Care Document ---
Author Name Unknown Organization [facility] Address [address] [place] [address] Care Team Providers Care Boiler Shop Mechanic Name Role Phone MAIA GARCIA RPA Primary Care Physician [phone] Encounter LTTL_DE FIN NBR [id number] Date(s): 04/12/23 - 04/12/[address] [address] Encounter Diagnosis Male erectile dysfunction, unspecified(Final) - Discharge Disposition: Home or Self Care Attending Physician: MAU RIVERA Admitting Physician: MAU RIVERA Referring Physician: MAIA GARCIA RPA Allergies, Adverse Reactions, Alerts No Known Medication Allergies Medications Albuterol (Eqv-Ventolin HFA) 90 mcg/inh inhalation aerosol Inhale 1 TO 2 puffs by mouth every four to six hours as needed Start Date: 03/27/23 Status: Ordered alfuzosin 10 mg oral tablet, extended release TAKE ONE TABLET BY MOUTH ONCE DAILY Start Date: 03/27/23 Status: Ordered darifenacin 7.5 mg oral tablet, extended release TAKE ONE TABLET BY MOUTH ONCE DAILY Start Date: 03/27/23 Status: Ordered Flovent HFA 110 mcg/inh inhalation aerosol TAKE 1 PUFF BY INHALATION ROUTE TWICE A DAY Start Date: 03/27/23 Status: Ordered LORazepam 1 mg oral tablet 0.5 mg = 0.5 tab, 0 Refill(s) Start Date: 03/27/23 Status: Ordered losartan 50 mg oral tablet TAKE ONE TABLET BY MOUTH ONCE DAILY Start Date: 03/27/23 Status: Ordered tolterodine 4 mg oral capsule, extended release TAKE ONE CAPSULE BY MOUTH ONCE DAILY Start Date: 03/27/23 Status: Ordered Results Laboratory List Name Date CBC w/ Diff 04/12/23 Testosterone Level Total 04/12/23 Automated Diff 04/12/23 Most recent to oldest [Reference Range]: 1 WBC [4.8-10.8 K/mcL] 5.7 K/mcL (04/12/23 8:25 AM) RBC [4.70-6.10 Million/mcL] 4.40 Million /mcL *LOW* (04/12/23 8:25 AM) Neutro Auto [42.2-75.2 %] 47.2 % (04/12/23 8:25 AM) Lymph Auto [20.5-51.1 %] 35.6 % (04/12/23 8:25 AM) [place] Auto [1.7-9.3 %] 9.3 % (04/12/23 8:25 AM) Basophil Auto [0.0-0.8 %] 1.4 % *HI* (04/12/23 8:25 AM) Baso Absolute [0.0-0.2 K/mcL] 0.1 K/mcL (04/12/23 8:25 AM) MCV [80.0-94.0 fL] 90.7 fL (04/12/23 8:25 AM) Testosterone Total [175-781 ng/dL] 290 n g/dL (04/12/23 8:25 AM) MCHC [32.0-37.0 g/dL] 33.8 g/dL (04/12/23 8:25 AM) Lymph Absolute [1.2-3.4 K/mcL] 2.0 K/mcL (04/12/23 8:25 AM) Hct [42.0-52.0 %] 39.9 % *LOW* (04/12/23 8:25 AM) [place] Absolute [0.1-0.6 K/mcL] 0.5 K/mcL (04/12/23 8:25 AM) MCH [27.0-31.0 pg] 30.7 pg (04/12/23 8:25 AM) Neutro Absolute [1.4-6.5 K/mcL] 2.7 K/mc L (04/12/23 8:25 AM) Hgb [14.0-18.0 g/dL] 13.5 g/dL *LOW* (04/12/23 8:25 AM) MPV [7.4-10.4 fL] 9.1 fL (04/12/23 8:25 AM) Platelets [130-400 K/mcL] 289 K/mcL (04/12/23 8:25 AM) Eos Absolute [0.0-0.2 K/mcL] 0.4 K/mcL *HI* (04/12/23 8:25 AM) RDW-CV [11.5-14.5 %] 12.6 % (04/12/23 8:25 AM) Imm Gran Absolute [0.00-0.02 K/mcL] 0.01 K/mcL (04/12/23 8:25 AM) Imm Gran Auto [0.0-0.5 %] 0.2 % (04/12/23 8:25 AM) Eos, Auto [0.00-3.00 %] 6.30 % *HI* (04/12/23 8:25 AM) Social History Social History Type Response Tobacco Current some day tob acco user Tobacco Use:. Sex Patient Care team information Care Team Personnel Name: MAIA GARCIA RPA Position: No Access Member Role: Primary Care Physician Address: Address: [address] [place] [id number] [place] [address] Care Team Related Persons Name: CHESTER KINCAID
--- OUTSIDE RECORDS SUMMARY | 2023-05-20 13:48 | XMS_ITS | Continuity of Care Document ---
Author Name Unknown Organization [facility] Address [address] [place] [address] Care Team Providers Care Cashier Tube Room Name Role Phone MAIA GARCIA RPA Primary Care Physician [phone] Encounter LTTL_AZ FIN NBR [id number] Date(s): 04/13/23 - 04/13/[address] [address]- Discharge Disposition: Home or Self Care Attending Physician: MAU RIVERA Admitting Physician: MAU RIVERA Referring Physician: MAU RIVERA Allergies, Adverse Reactions, Alerts No Known Medication [...] Status: Ordered Results Laboratory List Name Date Basic Metabolic Panel 04/13/23 CBC w/o Diff 04/13/23 Hepatic Function Panel 04/13/23 Testosterone Level Total 04/13/23 Vitamin B12 Level 04/13/23 Most recent to oldest [Reference Range]: 1 WBC [4.8-10.8 K/mcL] 5.6 K/mcL (04/13/23 8:48 AM) RBC [4.70-6.10 Million/mcL] 4.53 Million /mcL *LOW* (04/13/23 8:48 AM) BUN [8-26 mg/dL] 17 mg/dL (04/13/23 8:48 AM) Glucose Level [74-106 mg/dL] 98 mg/dL (04/13/23 8:48 AM) Potassium Level [3.5-5.1 mmol/L] 4.2 mmo l/L (04/13/23 8:48 AM) MCV [80.0-94.0 fL] 89.6 fL (04/13/23 8:48 AM) Testosterone Total [175-781 ng/dL] 317 n g/dL (04/13/23 8:48 AM) AST [15-41 IntlUnit/L] 19 IntlUnit/L (04/13/23 8:48 AM) ALT [17-63 IntlUnit/L] 17 IntlUnit/L (04/13/23 8:48 AM) MCHC [32.0-37.0 g/dL] 34.5 g/dL (04/13/23 8:48 AM) Osmolality [275-295 mOsm/kg] 279 mOsm/kg (04/13/23 8:48 AM) Sodium Level [134-143 mmol/L] 139 mmol/L (04/13/23 8:48 AM) Hct [42.0-52.0 %] 40.6 % *LOW* (04/13/23 8:48 AM) Calcium Level [8.9-10.3 mg/dL] 9.3 mg/dL (04/13/23 8:48 AM) Albumin Level [3.5-5.0 g/dL] 4.1 g/dL (04/13/23 8:48 AM) Protein Total [6.5-8.1 g/dL] 7.1 g/dL (04/13/23 8:48 AM) MCH [27.0-31.0 pg] 30.9 pg (04/13/23 8:48 AM) Bilirubin Total [0.2-1.2 mg/dL] 0.6 mg/d L (04/13/23 8:48 AM) Hgb [14.0-18.0 g/dL] 14.0 g/dL (04/13/23 8:48 AM) B12 Level [180-914 pg/mL] 196 pg/mL (04/13/23 8:48 AM) Alk Phos [38-130 IntlUnit/L] 51 IntlUnit /L (04/13/23 8:48 AM) MPV [7.4-10.4 fL] 9.0 fL (04/13/23 8:48 AM) Bilirubin Direct [0.0-0.5 mg/dL] 0.1 mg/ dL (04/13/23 8:48 AM) Platelets [130-400 K/mcL] 295 K/mcL (04/13/23 8:48 AM) CO2 [22-32 mmol/L] 25 mmol/L (04/13/23 8:48 AM) Chloride Level [98-111 mmol/L] 107 mmol/ L (04/13/23 8:48 AM) RDW-CV [11.5-14.5 %] 12.5 % (04/13/23 8:48 AM) A/G Ratio [1.0-2.5 g/dL] 1.4 g/dL (04/13/23 8:48 AM) BUN/Creat Ratio [8.0-20.0] 17.2 (04/13/23 8:48 AM) Globulin [2.3-3.5 g/dL] 3.0 g/dL (04/13/23 8:48 AM) Creatinine Level [0.61-1.24 mg/dL] 0.99 mg/dL (04/13/23 8:48 AM) Anion Gap [3.0-12.0] 7.0 (04/13/23 8:48 AM) eGFR CKD-EPI [>=60 mL/min/1.73 m2] 87 mL /min/1.73 m2 (04/13/23 8:48 AM) Social History Social History Type Response Tobacco Current some day tob acco user Tobacco Use:. Sex Patient Care team information Care Team Personnel Name: MAIA GARCIA RPA Position: No Access Member Role: Primary Care Physician Address: Address: [address] [place] [address]- Care Team Related Persons Name: CHESTER KINCAID
--- OUTSIDE RECORDS SUMMARY | 2023-05-20 13:48 | XMS_ITS | Continuity of Care Document ---
Author Name Unknown Organization [facility] Address [address] [place] [address] Care Team Providers Care Cryptologic Technician Technical Name Role Phone MAIA GARCIA RPA Primary Care Physician [phone] Encounter [facility] FIN NBR [id number] Date(s): 03/27/23 - 03/27/[address] [address]- [place] Encounter Diagnosis Vasovagal near syncope(Discharge Diagnosis) - 03/27/23 Discharge Disposition: Home or Self Care Attending Physician: Michael Flores MD Admitting Physician: Michael Flores MD Allergies, Adverse Reactions, Alerts No Known Medication Allergies Functional Status 03/27/23 Other exposure to Infectious Disease Non e Medications Albuterol (Eqv-Ventolin HFA) 90 mcg/inh inhalation [...] Laboratory List Name Date CBC w/ Diff 03/27/23 Comprehensive Metabolic Panel (CMP) 03/08 06/29 Lipase Level 03/27/23 Magnesium Level 03/27/23 Troponin-I High Sensitivity 03/27/23 Automated Diff 03/27/23 Most recent to oldest [Reference Range]: 1 WBC [4.8-10.8 K/mcL] 8.2 K/mcL (03/27/23 10:45 PM) RBC [4.70-6.10 Million/mcL] 4.39 Million /mcL *LOW* (03/27/23 10:45 PM) Neutro Auto [42.2-75.2 %] 72.0 % (03/27/23 10:45 PM) Lymph Auto [20.5-51.1 %] 16.8 % *LOW* (03/27/23 10:45 PM) [place] Auto [1.7-9.3 %] 6.6 % (03/27/23 10:45 PM) Basophil Auto [0.0-0.8 %] 0.7 % (03/27/23 10:45 PM) BUN [8-26 mg/dL] 22 mg/dL (03/27/23 10:45 PM) Glucose Level [74-106 mg/dL] 141 mg/dL *HI* (03/27/23 10:45 PM) Potassium Level [3.5-5.1 mmol/L] 4.3 mmo l/L (03/27/23 10:45 PM) Baso Absolute [0.0-0.2 K/mcL] 0.1 K/mcL (03/27/23 10:45 PM) MCV [80.0-94.0 fL] 90.4 fL (03/27/23 10:45 PM) AST [15-41 IntlUnit/L] 23 IntlUnit/L (03/27/23 10:45 PM) ALT [17-63 IntlUnit/L] 21 IntlUnit/L (03/27/23 10:45 PM) MCHC [32.0-37.0 g/dL] 34.5 g/dL (03/27/23 10:45 PM) Osmolality [275-295 mOsm/kg] 280 mOsm/kg (03/27/23 10:45 PM) Sodium Level [134-143 mmol/L] 137 mmol/L (03/27/23 10:45 PM) Lymph Absolute [1.2-3.4 K/mcL] 1.4 K/mcL (03/27/23 10:45 PM) Hct [42.0-52.0 %] 39.7 % *LOW* (03/27/23 10:45 PM) Lipase Level [18-51 unit/L] 38 unit/L 1 (03/27/23 10:45 PM) Calcium Level [8.9-10.3 mg/dL] 8.6 mg/dL *LOW* (03/27/23 10:45 PM) [place] Absolute [0.1-0.6 K/mcL] 0.5 K/mcL (03/27/23 10:45 PM) Albumin Level [3.5-5.0 g/dL] 3.8 g/dL (03/27/23 10:45 PM) Protein Total [6.5-8.1 g/dL] 6.8 g/dL (03/27/23 10:45 PM) MCH [27.0-31.0 pg] 31.2 pg *HI* (03/27/23 10:45 PM) Magnesium Level [1.8-2.5 mg/dL] 1.9 mg/d L (03/27/23 10:45 PM) Neutro Absolute [1.4-6.5 K/mcL] 5.9 K/mc L (03/27/23 10:45 PM) Bilirubin Total [0.2-1.2 mg/dL] 1.3 mg/d L *HI* (03/27/23 10:45 PM) Hgb [14.0-18.0 g/dL] 13.7 g/dL *LOW* (03/27/23 10:45 PM) Alk Phos [38-130 IntlUnit/L] 47 IntlUnit /L (03/27/23 10:45 PM) MPV [7.4-10.4 fL] 8.9 fL (03/27/23 10:45 PM) Platelets [130-400 K/mcL] 241 K/mcL (03/27/23 10:45 PM) CO2 [22-32 mmol/L] 20 mmol/L *LOW* (03/27/23 10:45 PM) Eos Absolute [0.0-0.2 K/mcL] 0.3 K/mcL *HI* (03/27/23 10:45 PM) Chloride Level [98-111 mmol/L] 107 mmol/ L (03/27/23 10:45 PM) RDW-CV [11.5-14.5 %] 12.6 % (03/27/23 10:45 PM) A/G Ratio [1.0-2.5 g/dL] 1.3 g/dL (03/27/23 10:45 PM) BUN/Creat Ratio [8.0-20.0] 18.2 (03/27/23 10:45 PM) Globulin [2.3-3.5 g/dL] 3.0 g/dL (03/27/23 10:45 PM) Imm Gran Absolute [0.00-0.02 K/mcL] 0.03 K/mcL *HI* (03/27/23 10:45 PM) Imm Gran Auto [0.0-0.5 %] 0.4 % (03/27/23 10:45 PM) NRBC Auto 0 *NA* (03/27/23 10:45 PM) NRBC Absolute 0 *NA* (03/27/23 10:45 PM) Creatinine Level [0.61-1.24 mg/dL] 1.21 mg/dL (03/27/23 10:45 PM) Troponin-I HS [<=20 ng/L] <2 ng/L 2 (03/27/23 10:45 PM) Anion Gap [3.0-12.0] 10.0 (03/27/23 10:45 PM) Eos, Auto [0.00-3.00 %] 3.50 % *HI* (03/27/23 10:45 PM) eGFR CKD-EPI [>=60 mL/min/1.73 m2] 69 mL /min/1.73 m2 (03/27/23 10:45 PM) 1Interpretive Data: Y-kwuajr-i-benzoquinone imine (meabolite of Acetaminophen) will generate erroneously low lipase results in samples for patients that have taken toxic doses of acetaminophen. 2Interpretive Data: The James ACCESS high-sensitivity Troponin I (hsTNI) 99 percentile cutoffs forhealthy adults are 12 ng/L or less for females and 20 ng/L or less for males. SERIAL MEASUREMENT IS HIGHLY RECOMMENDED for the diagnosis or exclusion of Acute Coronary Syndromes(ACS). Please refer to the High-Sensitivity Troponin Algorithm 2022 for guidance. As with all markers of cardiac injury, elevations of hsTnI do not in and of themselves indicate thepresence of an ischemic mechanism. Many other disease states can be associated with elevations via mechanisms different from those that cause injury in patients with ACS. These include trauma (contusion, ablation, pacing); congestive heart failure; pulmonary embolism; kidney failure; and myocarditis. Clinical judgement is necessary to distinguish patients who have ischemic heart disease from those who do not. Vital Signs Most recent to oldest [Reference Range]: 1 2 3 Temperature Temporal Artery [36-38 Deg C] 36.8 Deg C (03/27/23 10:14 PM) Peripheral Pulse Rate [60-100 bpm] 68 bpm (03/27/23 11:32 PM) 66 bpm (03/27/23 11:15 PM) 70 bpm (03/27/23 11:10 PM) Heart Rate Monitored [60-100 bpm] 70 bpm (03/27/23 11:32 PM) 68 bpm (03/27/23 11:15 PM) 69 bpm (03/27/23 11:10 PM) Respiratory Rate [12-24 br/min] 14 br/min (03/27/23 11:32 PM) 16 br/min (03/27/23 11:15 PM) 17 br/min (03/27/23 11:10 PM) Blood Pressure [90-140/60-90 mmHg] 125/78mmHg (03/27/23 11:15 PM) 117/77mmHg (03/27/23 10:14 PM) Mean Arterial Pressure, Cuff [65-140 mmHg] 94 mmHg (03/27/23 11:15 PM) 90 mmHg (03/27/23 10:14 PM) Mean Arterial Pressure Cuff 90 mmHg (03/27/23 11:15 PM) Weight Dosing 99.79 kg (03/27/23 10:26 PM) Weight Estimated 99.79 kg (03/27/23 10:14 PM) Height/Length Dosing 188.000 cm (03/27/23 10:26 PM) Height/Length Estimated 188.000 cm (03/27/23 10:14 PM) Social History Social History Type Response Tobacco Current some day tob acco user Tobacco Use:. Sex Hospital Discharge Instructions Patient Education 03/27/2023 22:27:18 Near-Syncope Near-Syncope Near-syncope is when you suddenly feel like you might pass out or faint, but you do not actually lose consciousness. This may also be referred to as presyncope. During an episode of near-syncope, youmay: ??? Feel dizzy, weak, light-headed, or like the room is spinning. ??? Feel nauseous. ??? See spots or see all white or all black in your field of vision. ??? Have cold, clammy skin or feel warm and sweaty. ??? Hear ringing in your ears (tinnitus). This condition is caused by a sudden decrease in blood flow to the brain. This decrease can result from various causes, but most of those causes are not dangerous. However, near-syncope may be a signof a serious medical problem, so it is important to seek medical care. Follow these instructions at home: Medicines ??? Take mhay-jwv-asvwkbh and prescription medicines only as told by your health care provider. ??? If you are taking blood pressure or heart medicine, get up slowly and take several minutes to sit and then stand. This can reduce dizziness and decrease the risk of near-syncope. Lifestyle ??? Do not drive, use machinery, or play sports until your health care provider says it is okay. ??? Do not drink alcohol. ??? Do not use any products that contain nicotine or tobacco. These products include cigarettes, chewing tobacco, and vaping devices, such as e-cigarettes. If you need help quitting, ask your health care provider. ??? Avoid hot tubs and saunas. General instructions ??? Pay attention to any changes in your symptoms. ??? Talk with your health care provider about your symptoms. You may need to have testing to understand the cause of your near-syncope. ??? If you start to feel like you might faint, sit or lie down right away. If sitting, put your head down between your legs. If lying down, raise (elevate) your feet above the level of your heart. ??? Breathe deeply and steadily. Wait until all of the symptoms have passed. ??? Have someone stay with you until you feel stable. ??? Drink enough fluid to keep your urine pale yellow. ??? Avoid prolonged standing. If you must stand for a long time, do movements such as: ??? Moving your legs. ??? Crossing your legs. ??? Flexing and stretching your leg muscles. ??? Squatting. ??? Keep all follow-up visits. This is important. Contact a health care provider if: ??? You continue to have episodes of near fainting. Get help right away if: ??? You faint. ??? You have any of these symptoms that may indicate trouble with your heart: ??? Fast or irregular heartbeats (palpitations). ??? Unusual pain in your chest, abdomen, or back. ??? Shortness of breath. ??? You have a seizure. ??? You have a severe headache. ??? You are confused. ??? You have vision problems. ??? You have severe weakness or trouble walking. ??? You are bleeding from your mouth or rectum, or have black or tarry stool. These symptoms may represent a serious problem that is an emergency. Do not wait to see if your symptoms will go away. Get medical help right away. Call your local emergency services (911 in the [place] Do not drive yourself to the hospital. Summary ??? Near-syncope is when you suddenly feel like you might pass out or faint, but you do not actually lose consciousness. ??? This condition is caused by a sudden decrease in blood flow to the brain. This decrease can result from various causes, but most of those causes are not dangerous. ??? Near-syncope may be a sign of a serious medical problem, so it is important to seek medical care. ??? If you start to feel like you might faint, sit or lie down right away. If sitting, put your head down between your legs. If lying down, raise (elevate) your feet above the level of your heart. ??? Talk with your health care provider about your symptoms. You may need to have testing to understand the cause of your near-syncope. This information is not intended to replace advice given to you by your health care provider. Make sure you discuss any questions you have with your health care provider. Document Revised: 10/02/2021 Document Reviewed: 10/02/2021 [employer] Patient Education ?? 2022 [employer]. Emergency department Discharge instructions * Michael Flores MD: PERFORM Event Display: ED Discharge Information Authored Date: [id number] ARASELI BALL :1960 Age:62 years Sex:Male Visit Date:03/27/2023 Primary Care Physician: MAIA GARCIA RPA Discharge Instructions We would like to thank you for allowing us to assist you with your healthcare needs. The following includes patient education materials and information regarding your injury/illness. Diagnosis from Today's Visit Vasovagal near syncope Discharge Vitals Temperature??(Temporal Artery) 98.2 ??F (36.8 ??C) Heart Rate??(Peripheral) 70 Heart Rate??(Monitored) 69 Respiratory Rate?? 17 Blood Pressure?? 117/77?? Height?? 74.02 in (188.000 cm) Weight??(Estimated) 220.04 lb (99.79 kg) Allergies No Known Medication Allergies What to Do Next Instructions from Your Care Team Rest. ??Stay hydrated. ??Follow-up with regular doctor or return to ED as needed You were treated today on an emergency basis; it may be vargas to contact your primary care provider to notify them of your visit today. You may have been referred to your regular doctor or a specialist, please follow up as instructed. If your condition worsens or you can't get in to see the doctor, contact the Emergency Department. Medications What How Much When Instructions Next Dose Unchanged albuterol (Albuterol (Eqv- Ventolin HFA) 90 mcg/inh inhalation aerosol) Inhale 1 TO 2 puffs by mouth every four to six hours as needed ?? Unchanged alfuzosin (alfuzosin 10 mg oral tablet, extended release) TAKE ONE TABLET BY MOUTH ONCE DAILY ?? Unchanged darifenacin (darifenacin 7.5 mg oral tablet, extended release) TAKE ONE TABLET BY MOUTH ONCE DAILY ?? Unchanged fluticasone (Flovent HFA 110 mcg/ inh inhalation aerosol) TAKE 1 PUFF BY INHALATION ROUTE TWICE A DAY ?? Unchanged LORazepam (LORazepam 1 mg oral tablet) 0.5 tab Unchanged losartan (losartan 50 mg oral tablet) TAKE ONE TABLET BY MOUTH ONCE DAILY ?? Unchanged tolterodine (tolterodine 4 mg oral capsule, extended release) TAKE ONE CAPSULE BY MOUTH ONCE DAILY ?? Education Materials Near-Syncope Near-syncope is when you suddenly feel like you might pass out or faint, but you do not actually lose consciousness. This may also be referred to as presyncope. During an episode of near-syncope, youmay: ? Feel dizzy, weak, light-headed, or like the room is spinning. ? Feel nauseous. ? See spots or see all white or all black in your field of vision. ? Have cold, clammy skin or feel warm and sweaty. ? Hear ringing in your ears (tinnitus). This condition is caused by a sudden decrease in blood flow to the brain. This decrease can result from various causes, but most of those causes are not dangerous. However, near-syncope may be a signof a serious medical problem, so it is important to seek medical care. Follow these instructions at home: Medicines ? Take gvoy-rya-bzdkvgr and prescription medicines only as told by your health care provider. ? If you are taking blood pressure or heart medicine, get up slowly and take several minutes to sit and then stand. This can reduce dizziness and decrease the risk of near-syncope. Lifestyle ? Do not drive, use machinery, or play sports until your health care provider says it is okay. ? Do not drink alcohol. ? Do not use any products that contain nicotine or tobacco. These products include cigarettes, chewing tobacco, and vaping devices, such as e-cigarettes. If you need help quitting, ask your health careprovider. ? Avoid hot tubs and saunas. General instructions ? Pay attention to any changes in your symptoms. ? Talk with your health care provider about your symptoms. You may need to have testing to understandthe cause of your near-syncope. ? If you start to feel like you might faint, sit or lie down right away. If sitting, put your head down between your legs. If lying down, raise (elevate) your feet above the level of your heart. ? Breathe deeply and steadily. Wait until all of the symptoms have passed. ? Have someone stay with you until you feel stable. ? Drink enough fluid to keep your urine pale yellow. ? Avoid prolonged standing. If you must stand for a long time, do movements such as: ? Moving your legs. ? Crossing your legs. ? Flexing and stretching your leg muscles. ? Squatting. ? Keep all follow-up visits. This is important. Contact a health care provider if: ? You continue to have episodes of near fainting. Get help right away if: ? You faint. ? You have any of these symptoms that may indicate trouble with your heart: ? Fast or irregular heartbeats (palpitations). ? Unusual pain in your chest, abdomen, or back. ? Shortness of breath. ? You have a seizure. ? You have a severe headache. ? You are confused. ? You have vision problems. ? You have severe weakness or trouble walking. ? You are bleeding from your mouth or rectum, or have black or tarry stool. These symptoms may represent a serious problem that is an emergency. Do not wait to see if your symptoms will go away. Get medical help right away. Call your local emergency services (911 in the [place] Do not drive yourself to the hospital. Summary ? Near-syncope is when you suddenly feel like you might pass out or faint, but you do not actually lose consciousness. ? This condition is caused by a sudden decrease in blood flow to the brain. This decrease can result from various causes, but most of those causes are not dangerous. ? Near-syncope may be a sign of a serious medical problem, so it is important to seek medical care. ? If you start to feel like you might faint, sit or lie down right away. If sitting, put your head down between your legs. If lying down, raise (elevate) your feet above the level of your heart. ? Talk with your health care provider about your symptoms. You may need to have testing to understandthe cause of your near-syncope. This information is not intended to replace advice given to you by your health care provider. Make sure you discuss any questions you have with your health care provider. Document Revised: 10/02/2021 Document Reviewed: 10/02/2021 [employer] Patient Education ?? 2022 [employer] Tests Performed Medications and Immunizations Administered Given Sodium Chloride 0.9%, 1000 mL, IV Bolus Lab Test Name Test Result Date/Time WBC 8.2 K/mcL 03/27/2023 22:45 EDT RBC 4.39 Million/mcL 03/27/2023 22:45 EDT Hgb 13.7 g/dL 03/27/2023 22:45 EDT Hct 39.7 % 03/27/2023 22:45 EDT MCV 90.4 fL 03/27/2023 22:45 EDT MCH 31.2 pg 03/27/2023 22:45 EDT MCHC 34.5 g/dL 03/27/2023 22:45 EDT RDW-CV 12.6 % 03/27/2023 22:45 EDT Platelets 241 K/mcL 03/27/2023 22:45 EDT MPV 8.9 fL 03/27/2023 22:45 EDT Neutro Auto 72.0 % 03/27/2023 22:45 EDT Lymph Auto 16.8 % 03/27/2023 22:45 EDT [place] Auto 6.6 % 03/27/2023 22:45 EDT Eos, Auto 3.50 % 03/27/2023 22:45 EDT Basophil Auto 0.7 % 03/27/2023 22:45 EDT Imm Gran Auto 0.4 % 03/27/2023 22:45 EDT NRBC Auto 0 03/27/2023 22:45 EDT Neutro Absolute 5.9 K/mcL 03/27/2023 22:45 EDT Lymph Absolute 1.4 K/mcL 03/27/2023 22:45 EDT [place] Absolute 0.5 K/mcL 03/27/2023 22:45 EDT Eos Absolute 0.3 K/mcL 03/27/2023 22:45 EDT Baso Absolute 0.1 K/mcL 03/27/2023 22:45 EDT Imm Gran Absolute 0.03 K/mcL 03/27/2023 22:45 EDT NRBC Absolute 0 03/27/2023 22:45 EDT Sodium Level 137 mmol/L 03/27/2023 22:45 EDT Potassium Level 4.3 mmol/L 03/27/2023 22:45 EDT Chloride Level 107 mmol/L 03/27/2023 22:45 EDT CO2 20 mmol/L 03/27/2023 22:45 EDT Alk Phos 47 IntlUnit/L 03/27/2023 22:45 EDT AST 23 IntlUnit/L 03/27/2023 22:45 EDT ALT 21 IntlUnit/L 03/27/2023 22:45 EDT BUN 22 mg/dL 03/27/2023 22:45 EDT Glucose Level 141 mg/dL 03/27/2023 22:45 EDT Creatinine Level 1.21 mg/dL 03/27/2023 22:45 EDT BUN/Creat Ratio 18.2 03/27/2023 22:45 EDT eGFR CKD-EPI 69 mL/min/1.73 m2 03/27/2023 22:45 EDT Calcium Level 8.6 mg/dL 03/27/2023 22:45 EDT Protein Total 6.8 g/dL 03/27/2023 22:45 EDT Albumin Level 3.8 g/dL 03/27/2023 22:45 EDT Globulin 3.0 g/dL 03/27/2023 22:45 EDT A/G Ratio 1.3 g/dL 03/27/2023 22:45 EDT Bilirubin Total 1.3 mg/dL 03/27/2023 22:45 EDT Anion Gap 10.0 03/27/2023 22:45 EDT Lipase Level 38 unit/L 03/27/2023 22:45 EDT Magnesium Level 1.9 mg/dL 03/27/2023 22:45 EDT Osmolality 280 mOsm/kg 03/27/2023 22:45 EDT Troponin-I HS <2 ng/L 03/27/2023 22:45 EDT Patient/Special Police Signature Patient Name:ARASELI BALL I have received this information and my questions have been answered. Patient/Special Police Name: Patient/Special Police Signature: Relationship to Patient: Witness Name/Signature: Date: Electronically Signed on: 03/27/2023 23:27 EDTSigned by:KECIA Patient Care team information Care Team Personnel Name: MAIA GARCIA RPA Position: No Access Member Role: Primary Care Physician Address: Address: [address] [place] [id number] Name: Michael Flores MD Position: Physician Member Role: Attending Physician Address: Address: [address] [place] [address] Name: Helene Jarquin Position: Nurse Member Role: ED Nurse Care Team Related Persons Name: CHESTER KINCAID
[2023-05-22 10:24] LABS: Intrinsic Factor Blocking Ab Positive (Negative)
== END 2023-05-20 13:45 | disposition home or self-care (01) ==
LOC: NCHCN 13:44
PROVIDERS: PCP Physician Assistant; Visit Provider Nurse Practitioner Family
DX: E53.8 Deficiency of other specified B group vitamins (principal)
CPT/HCPCS: 80186; 86340

== ENCOUNTER 2023-08-11 14:58 | Outpatient (REF) | payer OTHER, SELFPAY ==
[2023-08-11 20:12] LABS: Anion Gap 9.9 mmol/L (3-11); BUN 17 mg/dL (7-18); CO2 25.1 mmol/L (21.0-32.0); CREATININE 1.2 mg/dL (0.70-1.30); Calcium 9.1 mg/dL (8.5-10.1); Chloride 105 mmol/L (98-107); Estimated GFR 69.23 (mL/min/1.73m2); Glucose 106 mg/dL (74-106); Potassium 4.2 mmol/L (3.5-5.1); Sodium 140 mmol/L (136-145); Vitamin B12 609 pg/mL (193-986)
== END 2023-08-11 14:59 | disposition home or self-care (01) ==
LOC: NCHCN 14:58
PROVIDERS: PCP Physician Assistant; Visit Provider Physician Assistant
DX: I10 Essential (primary) hypertension (principal); D51.0 Vitamin B12 deficiency anemia due to intrinsic factor deficiency
CPT/HCPCS: 80048; 82607